=== PATIENT | female | born 1945 | race Caucasian/White ===

== ENCOUNTER 2024-10-10 21:12 | Inpatient (IN) | payer MEDICARE, OTHER ==
[~2024-10-10] VITALS: Ht 162.6 cm; Wt 90.7 kg
[2024-10-10 21:47] LABS: BASOPHILS % (AUTO) 0.7 % (0.0-2.0); EOSINOPHILS # (AUTO) 0.1 K/uL (0.0-0.7); EOSINOPHILS % (AUTO) 1.1 % (0.0-7.0); HEMATOCRIT 34.8 % (31.2-41.9); HEMOGLOBIN 11.9 g/dL (10.9-14.3); LYMPHOCYTES # (AUTO) 0.5 K/uL (0.8-4.8); LYMPHOCYTES % (AUTO) 11.6 % (20.5-51.5); MEAN CORPUSCULAR HGB CONC 34 g/dL (32.3-35.6); MEAN CORPUSCULAR VOLUME 87.8 fL (75.5-95.3); MONOCYTES # (AUTO) 0.5 K/uL (0.1-1.30); MONOCYTES % (AUTO) 11.8 % (0.0-11.0); NEUTROPHILS # (AUTO) 3.4 K/uL (1.8-8.9); NEUTROPHILS % (AUTO) 74.8 % (38.5-71.5); PLATELET COUNT (AUTO) 192 K/uL (179-408); RED BLOOD CELL COUNT(AUTO) 3.96 MIL/uL (3.63-4.92); RED CELL DISTRIBUTION WIDTH 14.1 % (12.3-17.7); WHITE BLOOD COUNT (AUTO) 4.5 K/uL (3.8-11.8)
[2024-10-10 21:55] LABS: CALCIUM 8.3 mg/dL (8.5-10.1); CARBON DIOXIDE 27 mmol/L (21-32); CHLORIDE 104 mmol/L (98-107); CREATININE 1.2 mg/dL (0.6-1.3); GLUCOSE 109 mg/dL (74-106); POTASSIUM 3.8 mmol/L (3.5-5.1); SODIUM SERUM 141 mmol/L (136-145); UREA NITROGEN, BLOOD 16 mg/dL (7-18)
[2024-10-10 21:58] LABS: ETHANOL < 3 MG/DL (0-10)
[2024-10-10 22:01] LABS: DIFFERENTIAL COMMENT 1
[2024-10-10 22:02] LABS: ACETAMINOPHEN < 2.0 ug/mL (10-30); ALANINE AMINOTRANSFERASE 25 U/L (14-59); ALBUMIN 2.9 g/dL (3.4-5.0); ALKALINE PHOSPHATASE 81 U/L (50-136); ASPARTATE AMINOTRANSFERASE 22 U/L (15-37); BILIRUBIN,TOTAL 0.3 mg/dL (0.2-1.0); TOTAL PROTEIN, SERUM 6.6 g/dL (6.4-8.2)
[2024-10-10] MEDS ORDERED: LAMO100T2 PO (22:07)
[2024-10-10] MEDS ORDERED: TRAM50TA PO (22:07)
[2024-10-10] MEDS ORDERED: LEVO75TA PO (22:07)
[2024-10-10] MEDS ORDERED: CHOL100043 PO (22:07)
[2024-10-10] MEDS ORDERED: POTA8TAB3 PO (22:07)
[2024-10-10] MEDS ORDERED: ARIP400S3 SQ (22:07)
[2024-10-10] MEDS ORDERED: MIRT-121 PO (22:07)
[2024-10-10] MEDS ORDERED: APIX5TAB PO (22:07)
[2024-10-10] MEDS ORDERED: FURO20TA4 PO (22:07)
[2024-10-10] MEDS ORDERED: BUME0.5T6 PO (22:07)
[2024-10-11 00:37] LABS: *BILIRUBIN,URIN NEGATIVE (NEGATIVE); *BLOOD, URINE 1+ (NEGATIVE); *CLARITY,URINE CLEAR (CLEAR); *COLOR,URINE YELLOW (YELLOW); *KETONES,URINE NEGATIVE (NEGATIVE); *PROTEIN,URINE NEGATIVE (NEGATIVE); *UROBILINOGEN,URINE 0.2 E.U./dl (NORMAL); LEUKOCYTE ESTERASE ,URINE NEGATIVE (NEGATIVE); NITRITE, URINE NEGATIVE (NEGATIVE); UGLUCOSE NEGATIVE (NEGATIVE)
[2024-10-11 01:02] LABS: *AMPHETAMINE, URINE NEGATIVE (NEGATIVE); *BARBITURATE, URINE NEGATIVE (NEGATIVE); *BENZODIAZEPINE, URINE NEGATIVE (NEGATIVE); *CANNABINOID, URINE NEGATIVE (NEGATIVE); *COCCAINE, URINE NEGATIVE (NEGATIVE); *OPIATE, URINE NEGATIVE (NEGATIVE); *PHENCYCLIDINE SCREEN,URINE NEGATIVE (NEGATIVE); FENTANYL, URINE NEGATIVE (NEGATIVE)
[2024-10-11 01:35] LABS: BACTERIA,URINE FEW /HPF (NONE SEEN); SQUAMOUS EPITHELIAL CELL,UR MODERATE /HPF (NONE SEEN); WBC,URINE 0-3 /HPF (0-3)
[2024-10-11 01:36] LABS: MUCUS,URINE FEW /LPF (0-FEW)
[2024-10-11] MEDS ORDERED: ONDANSETRON 4 MG/2 ML VIAL IV PRN (02:45)
[2024-10-11] MEDS ORDERED: REMEDY ESSENTIAL ZINC PASTE 113 GM TP PRN (02:45)
[2024-10-11] MEDS ORDERED: MAGNESIUM HYDROXIDE 30 ML LIQUID UDC PO PRN (02:45)
[2024-10-11 08:05] LABS: BASOPHILS % (AUTO) 0.8 % (0.0-2.0); EOSINOPHILS # (AUTO) 0.1 K/uL (0.0-0.7); EOSINOPHILS % (AUTO) 1.6 % (0.0-7.0); HEMATOCRIT 33.7 % (31.2-41.9); HEMOGLOBIN 11.3 g/dL (10.9-14.3); LYMPHOCYTES # (AUTO) 0.7 K/uL (0.8-4.8); LYMPHOCYTES % (AUTO) 18.2 % (20.5-51.5); MEAN CORPUSCULAR HEMOGLOBIN 29.7 uug (24.7-32.8); MEAN CORPUSCULAR HGB CONC 34 g/dL (32.3-35.6); MEAN CORPUSCULAR VOLUME 88.1 fL (75.5-95.3); MONOCYTES # (AUTO) 0.6 K/uL (0.1-1.30); NEUTROPHILS # (AUTO) 2.3 K/uL (1.8-8.9); NEUTROPHILS % (AUTO) 62.4 % (38.5-71.5); PLATELET COUNT (AUTO) 180 K/uL (179-408); RED BLOOD CELL COUNT(AUTO) 3.82 MIL/uL (3.63-4.92); RED CELL DISTRIBUTION WIDTH 14.1 % (12.3-17.7); WHITE BLOOD COUNT (AUTO) 3.7 K/uL (3.8-11.8)
[2024-10-11 08:10] LABS: DIFFERENTIAL COMMENT 1
[2024-10-11 08:20] LABS: CARBON DIOXIDE 25 mmol/L (21-32); CHLORIDE 106 mmol/L (98-107); GLUCOSE 100 mg/dL (74-106); MAGNESIUM 1.9 mg/dL (1.8-2.4); PHOSPHOROUS 3.8 mg/dL (2.5-4.9); POTASSIUM 3.6 mmol/L (3.5-5.1); SODIUM SERUM 140 mmol/L (136-145); UREA NITROGEN, BLOOD 14 mg/dL (7-18)
[2024-10-11 08:40] LABS: THYROID STIMULATING HORMONE 2.472 mIU/mL (0.358-3.740)
[2024-10-11 12:17] VITALS: BP 116/62; TEMP 98.5; O2SAT 95
[2024-10-11 14:52] LABS: LYMPHOCYTES % (MANUAL) 0 % (20-40); NEUTROPHILS % (MANUAL) 0 % (42-75)
[2024-10-11 16:41] VITALS: BP 112/58; TEMP 99.6; O2SAT 82
[2024-10-11] MEDS: DIVALPROEX 125 MG TABLET.DR PO SCH (17:42)
[2024-10-11 20:01] VITALS: BP 125/71; TEMP 98.5; O2SAT 96
[2024-10-11] MEDS: NYSTATIN POWDER 15 GM BOTTLE TOP SCH (20:07)
[2024-10-12 04:13] VITALS: BP 139/62; TEMP 98.9; O2SAT 96
[2024-10-12 16:10] VITALS: O2SAT 97
[2024-10-12 16:46] VITALS: BP 146/64; TEMP 98.6; O2SAT 97
[2024-10-12 20:11] VITALS: BP 152/80; TEMP 98.8; O2SAT 95
[2024-10-13 07:15] VITALS: BP 119/68; TEMP 98.5; O2SAT 97
[2024-10-13] MEDS ORDERED: TRAMADOL HCL 50 MG TABLET PO PRN (09:30)
[2024-10-13] MEDS ORDERED: POTASSIUM CHLORIDE PO PRN (09:30)
[2024-10-13 11:24] VITALS: BP 137/62; TEMP 98.7; O2SAT 98
[2024-10-13 15:08] VITALS: BP 141/66; TEMP 97.7; O2SAT 95
[2024-10-13] MEDS: APIXABAN 5 MG TABLET PO SCH (16:04)
[2024-10-13 17:04] VITALS: O2SAT 96
[2024-10-13 19:40] VITALS: BP 132/77; TEMP 98.8; O2SAT 95
[2024-10-14 00:42] VITALS: O2SAT 96
[2024-10-14 04:58] VITALS: BP 133/54; TEMP 98; O2SAT 97
[2024-10-14] MEDS: LEVOTHYROXINE SODIUM 75 MCG TABLET PO SCH (08:06)
[2024-10-14] MEDS: FUROSEMIDE 20 MG TABLET PO SCH (08:06)
[2024-10-14 09:50] LABS: BASOPHILS % (AUTO) 0.6 % (0.0-2.0); EOSINOPHILS % (AUTO) 0.9 % (0.0-7.0); HEMATOCRIT 38.1 % (31.2-41.9); HEMOGLOBIN 12.7 g/dL (10.9-14.3); LYMPHOCYTES # (AUTO) 0.6 K/uL (0.8-4.8); MEAN CORPUSCULAR HEMOGLOBIN 29.5 uug (24.7-32.8); MEAN CORPUSCULAR HGB CONC 33 g/dL (32.3-35.6); MEAN CORPUSCULAR VOLUME 88.1 fL (75.5-95.3); MONOCYTES # (AUTO) 0.3 K/uL (0.1-1.30); MONOCYTES % (AUTO) 7.8 % (0.0-11.0); NEUTROPHILS % (AUTO) 75.7 % (38.5-71.5); PLATELET COUNT (AUTO) 174 K/uL (179-408); RED BLOOD CELL COUNT(AUTO) 4.32 MIL/uL (3.63-4.92); RED CELL DISTRIBUTION WIDTH 14.3 % (12.3-17.7); WHITE BLOOD COUNT (AUTO) 3.9 K/uL (3.8-11.8)
[2024-10-14 09:52] LABS: DIFFERENTIAL COMMENT 1
[2024-10-14 10:05] LABS: CALCIUM 7.8 mg/dL (8.5-10.1); CARBON DIOXIDE 27 mmol/L (21-32); CHLORIDE 101 mmol/L (98-107); CREATININE 1.2 mg/dL (0.6-1.3); GLUCOSE 140 mg/dL (74-106); POTASSIUM 4.3 mmol/L (3.5-5.1); SODIUM SERUM 138 mmol/L (136-145); UREA NITROGEN, BLOOD 18 mg/dL (7-18)
[2024-10-14 11:35] VITALS: BP 128/54; TEMP 98.8; O2SAT 95
[2024-10-14 14:01] VITALS: O2SAT 94
[2024-10-14 15:36] VITALS: BP 120/66; TEMP 98.8; O2SAT 94
[2024-10-14 20:29] VITALS: BP 148/89; TEMP 100.1; O2SAT 92
[2024-10-14] MEDS: ACETAMINOPHEN 325 MG TABLET PO PRN (20:53)
[2024-10-15 04:37] VITALS: O2SAT 96
[2024-10-15 06:02] VITALS: BP 123/75; TEMP 97.6
[2024-10-15 11:34] VITALS: BP 144/71; TEMP 99.2; O2SAT 94
[2024-10-15 14:10] VITALS: O2SAT 96
[2024-10-15 16:00] VITALS: BP 127/66; TEMP 101.3; O2SAT 96
[2024-10-15 19:00] VITALS: BP 118/60; TEMP 98.9; O2SAT 96
[2024-10-16 02:01] VITALS: O2SAT 97
[2024-10-16 06:00] VITALS: BP 126/62; TEMP 98.9; O2SAT 96
[2024-10-16] MEDS: LEVOTHYROXINE SODIUM 75 MCG TABLET PO SCH (11:20)
[2024-10-16 11:55] VITALS: BP 124/62; TEMP 98.6; O2SAT 97
[2024-10-16 16:30] VITALS: O2SAT 97
[2024-10-16 19:05] VITALS: BP 151/76; TEMP 99.4; O2SAT 95
[2024-10-17 04:26] VITALS: O2SAT 97
[2024-10-17 06:05] VITALS: BP 133/73; TEMP 98.1; O2SAT 94
[2024-10-17 11:30] VITALS: BP 140/65; TEMP 98; O2SAT 94
[2024-10-17 16:00] VITALS: O2SAT 96
[2024-10-17 16:30] VITALS: BP 138/60; TEMP 98.1; O2SAT 95
[2024-10-17 19:00] VITALS: BP 147/78; TEMP 98; O2SAT 94
== END 2024-10-17 21:00 | DRG 178 ==
LOC: ER 21:18 → MEDSURG3 10-11 07:48
PROVIDERS: ATTEND Internal Medicine
DX: U07.1 COVID-19 (principal); F31.4 Bipolar disorder, current episode depressed, severe, without psychotic features; Z59.01 Sheltered homelessness; N18.9 Chronic kidney disease, unspecified; I48.0 Paroxysmal atrial fibrillation; M62.81 Muscle weakness (generalized); Z91.81 History of falling; R41.89 Other symptoms and signs involving cognitive functions and awareness; F41.9 Anxiety disorder, unspecified; Z88.1 Allergy status to other antibiotic agents; Z79.01 Long term (current) use of anticoagulants; Z79.899 Other long term (current) drug therapy; Z79.890 Hormone replacement therapy; R27.8 Other lack of coordination
CPT/HCPCS: 36415; 70030-TC; 71045; 83735; 84100; 84443; 85025; 87040; 94760; A4663; A6209; G0378; G0480